=== PATIENT | female | born 1975 | race Caucasian/White ===

== ENCOUNTER 2021-04-13 10:23 | Outpatient (CLI) | payer OTHER, SELFPAY ==
--- NOTE | 2021-04-13 12:04 | NEURO ---
NCS and/or EMG Patient Report Ordering Doctor: Leland Arredondo DATE OF SERVICE: 04/13/21 Indication: Intermittent sensory disturbances of digits 1/2 or 4/5 on the left hand. No associated weakness. In between episodes, sensation is normal. Chronic localized neck and scapular pain with no clear radicular features. Findings: Nerve conduction studies were performed in the left upper extremity. The left median motor study recording the abductor pollicis brevis showed a normal amplitude, normal distal latency and normal conduction velocity. The left ulnar motor study recording the abductor digiti minimi showed a normal amplitude, normal distal latency and normal conduction velocity. No conduction block or focal slowing was present across the elbow. The left median sensory response recording digit two showed a normal amplitude, latency and conduction velocity. The left ulnar sensory response recording digit five showed a normal amplitude, latency and conduction velocity. The left radial sensory response recording over the extensor snuff box showed a normal amplitude, latency and conduction velocity. Left median-ulnar lumbrical / interosseous motor latencies showed a normal median latency compared to the ulnar. Needle EMG of the left upper extremity and cervical paraspinal muscles was performed. No active denervation was seen in any muscle. The left infraspinatus was too distant to evaluate morphology, but recruitment was normal. All other motor unit morphology, activation and recruitment patterns were normal. Impression: This is a normal study. There is no electrophysiologic evidence of cervical radiculopathy in the left upper extremity. In addition, there is no electrophysiologic evidence of brachial plexopathy or entrapment neuropathy in the left upper extremity. Please note: the electrodiagnosis of radiculopathy is made on the basis of excluding peripheral nerve lesions on nerve conduction studies and the needle EMG demonstrating denervation and/or reinnervation in the distribution of one or more nerve roots (i.e., acute and/or chronic axonal loss). Thus, electrodiagnostic studies are insensitive in detecting radiculopathy in the absence of axonal loss (e.g., in the setting of compression resulting in intermittent ischemia or mechanical deformation; or demyelination without axonal loss). Thus, clinical correlation is required in the interpretation of this negative electrodiagnostic study for radiculopathy. Robert Wu D.O. Multi [employer] Codes Neurology Neurology Interp Codes: 94585-84 Musc test done w/n test comp (interp) and 20957-60 Nr anna test 7-8 studies (interp)
== END 2021-04-13 23:59 | disposition short-term general hospital (02) ==
PROVIDERS: PCP Family Medicine; Referring Provider Orthopaedic Surgery; Visit Provider Orthopaedic Surgery
DX: M48.02 Spinal stenosis, cervical region (principal); R20.2 Paresthesia of skin; M47.22 Other spondylosis with radiculopathy, cervical region
CPT/HCPCS: 95886; 95910

== ENCOUNTER 2021-05-04 16:55 | Outpatient (CLI) | payer OTHER, SELFPAY ==
--- NOTE | 2021-05-04 16:58 | CT_ITS ---
EXAM: CT CERVICAL SPINE WITHOUT INTRAVENOUS CONTRAST CLINICAL INDICATION: BENIGN NEOPLASM BONE AND ARTICULAR CARTILAGE TECHNIQUE: Helically acquired images were obtained of the cervical spine without intravenous contrast. 2D reformatted images were reviewed. This CT exam was performed using one or more of the following dose reduction techniques: automated exposure control, adjustment of the mA and/or kV according to patient size, and/or use of iterative reconstruction technique. This report was created using [employer] report generation technology. COMPARISON: None. FINDINGS: VERTEBRAE: Unremarkable. No fracture. No traumatic subluxation. No discrete lytic or blastic abnormality. Normal alignment. Normal craniocervical junction and cervicothoracic junction. DISCS/SPINAL CANAL/NEURAL FORAMINA: Unremarkable. Disc heights are preserved. No critical stenosis. SOFT TISSUES: Unremarkable. No prevertebral soft tissue swelling. LYMPH NODES: Unremarkable. No cervical adenopathy. LUNG APICES: Unremarkable as visualized. Clear. CT/Spine Cervical without Contras IMPRESSION: No significant disc space narrowing, foraminal narrowing or canal stenosis. Electronically Signed: Ray Ca MD ([place]) at 22:53 EST ,
== END 2021-05-04 23:59 | disposition home or self-care (01) ==
LOC: CT 16:56
PROVIDERS: PCP Family Medicine; Referring Provider Orthopaedic Surgery; Visit Provider Orthopaedic Surgery
DX: D16.9 Benign neoplasm of bone and articular cartilage, unspecified (principal)
CPT/HCPCS: 72125